=== PATIENT | female | born 1990 | race African-American/Black ===

== ENCOUNTER 2020-06-05 02:09 | Observation (INO) | payer MEDICAID ==
[~2020-06-05] VITALS: Ht 167.6 cm; Wt 69.4 kg
[2020-06-05] MEDS ORDERED: PREN1TAB78 PO (03:11)
[2020-06-05] MEDS: LACTATED RINGERS 1,000 ML IV SCH ×3 (03:15→06:32)
[2020-06-05] MEDS ORDERED: ACETAMINOPHEN 500MG TABLET PO SCH (05:30)
[2020-06-05] MEDS ORDERED: HYDR-3281 PO (05:35)
== END 2020-06-05 07:15 | disposition home or self-care (01) ==
LOC: 8 EST LDRP 02:09 → INTOOBSV 02:09
PROVIDERS: ADMIT Obstetrics & Gynecology; ATTEND Obstetrics & Gynecology
DX: O9A.213 Injury, poisoning and certain other consequences of external causes complicating pregnancy, third trimester (principal); O26.893 Other specified pregnancy related conditions, third trimester; S60.811A Abrasion of right wrist, initial encounter; S50.811A Abrasion of right forearm, initial encounter; S40.811A Abrasion of right upper arm, initial encounter; R10.30 Lower abdominal pain, unspecified; Y04.0XXA Assault by unarmed brawl or fight, initial encounter; Y93.89 Activity, other specified; Y92.59 Other trade areas as the place of occurrence of the external cause; Z3A.30 30 weeks gestation of pregnancy
CPT/HCPCS: 76805; 76818; 96360; 96361; 99281; G0378

== ENCOUNTER 2022-08-23 11:54 | Emergency (ER) | payer MEDICAID ==
[~2022-08-23] VITALS: Ht 162.6 cm; Wt 61.0 kg
[~2022-08-23 11:54] MED LIST: HYDR-4346 PO; PREN1TAB78 PO
[2022-08-23] MEDS ORDERED: ONDANSETRON HCL 4MG/2ML INJ IV ONE (12:30)
[2022-08-23] MEDS ORDERED: NITROGLYCERIN 0.4MG TABLET SL SL PRN (12:30)
[2022-08-23] MEDS ORDERED: ASPIRIN 81MG TABLET PO ONE (12:30)
[2022-08-23 12:46] LABS: BASOPHILS % 0.8 % (0.0-2.0); EOSINOPHILS % 0.5 % (0.0-5.0); HEMATOCRIT. 47.2 % (36.0-48.0); HEMOGLOBIN. 15.9 g/dL (12.0-16.0); LYMPHOCYTES % 27.6 % (20.0-50.0); MEAN CORPUSCULAR HEMOGLOBIN 32.4 pg (28.0-32.0); MEAN PLATELET VOLUME 7.7 fl (7.4-10.4); MONOCYTES % 5.9 % (2.0-8.0); NEUTROPHILS % 65.2 % (40.0-76.0); PLATELET 465 x1000/uL (130-400); RED BLOOD CELL COUNT 4.92 mill/uL (4.2-5.4); RED CELL DISTRIBUTION WIDTH 13.9 % (11.6-14.6)
[2022-08-23 12:53] LABS: CHLORIDE 102 mEq/L (98-107)
[2022-08-23 13:09] LABS: B-HCG QUANTITATIVE 3 mIU/mL (<3)
[2022-08-23] MEDS ORDERED: MAGNESIUM/ALUMINUM HYDROXIDE/SIMETHICONE 30ML UDC PO STA (14:10)
[2022-08-23] MEDS ORDERED: VISCOUS LIDOCAINE 2% 15 ML UDC PO STA (14:10)
[2022-08-23] MEDS ORDERED: FAMOTIDINE 20MG/2ML VIAL IV ONE (14:15)
[2022-08-23 14:55] LABS: CLARITY URINE CLOUDY (CLEAR); COLOR URINE ORANGE (YELLOW); KETONES URINE 3+ (NEGATIVE); LEUKOCYTE ESTERASE URINE 2+ (NEGATIVE); NITRITE URINE POSITIVE (NEGATIVE); OCCULT BLOOD URINE 3+ (NEGATIVE); PH URINE 6.5 (4.5-8.0); PROTEIN URINE 2+ (NEGATIVE); SPECIFIC GRAVITY URINE 1.025 (1.005-1.030)
[2022-08-23] MEDS ORDERED: CEFTRIAXONE 1 G PREMIX 50 ML IV ONE (15:30)
[2022-08-23] MEDS ORDERED: KETOROLAC 15MG/ML VIAL IV ONE ×2 (15:30→17:30)
[2022-08-23 15:52] LABS: *AMPHETAMINES SCREEN URINE NEGATIVE (NEGATIVE); *BARBITURATES SCREEN URINE NEGATIVE (NEGATIVE); *BENZODIAZEPINES SCREEN URINE NEGATIVE (NEGATIVE); *COCAINE SCREEN URINE NEGATIVE (NEGATIVE); METHADONE URINE SCREEN NEGATIVE (NEGATIVE); OPIATES URINE SCREEN NEGATIVE (NEGATIVE); PHENCYCLIDINE URINE SCREEN NEGATIVE (NEGATIVE)
[2022-08-23 15:53] LABS: CANNABINOID URINE SCREEN PRESUMTIVE POSITIVE (NEGATIVE)
[2022-08-23] MEDS ORDERED: CIPR-263 MT (17:34)
[2022-08-23 17:44] VITALS: BP 145/74
== END 2022-08-23 17:48 | disposition home or self-care (01) ==
LOC: ER 11:54 → CANBEDREQ 12:57 → ER 17:48
DX: N39.0 Urinary tract infection, site not specified (principal)
CPT/HCPCS: 36415; 76830; 76856; 80053; 80305; 81003; 81025; 83690; 83880; 84484; 84702; 85025; 86850; 86900; 86901; 96365; 96375; 96376; 99284; J0696; J1885; J2405; J3490